=== PATIENT | female | born 1965 | race Hispanic/Latino ===

== ENCOUNTER → 2024-05-21 | Outpatient (CLI) | payer BC ==
[2024-05-21 16:16] LABS: BASOPHILS # (AUTO) 0.05 K/uL (0.00-0.20); BASOPHILS % (AUTO) 1.1 % (0.0-5.0); EOSINOPHILS # (AUTO) 0.17 K/uL (0.00-0.70); EOSINOPHILS % (AUTO) 3.9 % (0.0-8.0); HEMATOCRIT 40.6 % (36-48); IMMATURE GRANULOCYTE ABSOLUTE 0.01 K/uL (0-1); LYMPHOCYTES # (AUTO) 1.1 K/uL (1.0-4.8); MEAN CORPUSCULAR HEMOGLOBIN 27.7 pg (27.0-33.0); MEAN CORPUSCULAR HGB CONC 31.8 g/dL (32.0-36.0); MEAN CORPUSCULAR VOLUME 87.1 fL (79-99); MONOCYTES # (AUTO) 0.4 K/uL (0.1-1.0); MONOCYTES % (AUTO) 8.7 % (3.0-13.0); NEUTROPHILS # (AUTO) 2.7 K/uL (1.8-7.7); NEUTROPHILS % (AUTO) 61.1 % (40.0-77.0); PLATELET COUNT (AUTO) 247 K/uL (130-400); RED BLOOD CELL COUNT(AUTO) 4.66 MIL/uL (4.00-5.50); RED CELL DISTRIBUTION WIDTH 13.6 % (11.0-15.5); WHITE BLOOD COUNT (AUTO) 4.4 K/uL (4.8-10.8)
[2024-05-21 16:32] LABS: HEMOGLOBIN A1C 5.3 % (4.0-6.0)
[2024-05-21 16:42] LABS: ALBUMIN 3.9 g/dL (3.5-5.0); BILIRUBIN,TOTAL 0.5 mg/dL (0.2-1.0); CREATININE 0.9 mg/dL (0.5-1.0); POTASSIUM 4.1 mmol/L (3.5-5.1); THYROID STIMULATING HORMONE 1.84 uIU/mL (0.36-3.74); TOTAL PROTEIN, SERUM 7.1 g/dL (6.0-8.3)
== END | disposition home or self-care (01) ==
LOC: LAB 11:46
PROVIDERS: ATTEND Student in an Organized Health Care Education/Training Program
DX: E78.1 Pure hyperglyceridemia (principal); R00.2 Palpitations; R07.9 Chest pain, unspecified
CPT/HCPCS: 36415; 80053; 80061; 83036; 83735; 84443; 85025

== ENCOUNTER → 2024-05-21 | Outpatient (CLI) | payer BC ==
--- NOTE | 2024-05-23 08:50 | HMCSR ---
APPROVED REPORT Laterality: Bilateral Indications H53.129 Doppler Spectral Velocity Analysis PSV / EDVPSV / EDV ECA (R) 110 / cm/sECA (L) 74 / cm/s dICA (R) 91 / 41 cm/sdICA (L) 100 / 45 cm/s Michael (R) 126 / 50 cm/smICA (L) 106 / 50 cm/s pICA (R) 108 / 34 cm/spICA (L) 113 / 44 cm/s dCCA (R) 82 / 30 cm/sdCCA (L) 115 / 51 cm/s mCCA (R) 102 / 31 cm/smCCA (L) 109 / 34 cm/s pCCA (R) 97 / 33 cm/spCCA (L) 131 / 39 cm/s Vert (R) 80 / cm/sVert (L) 68 / cm/s Subl. (R) 127 / cm/sSubl. (L) 130 / cm/s ICA/CCA 1.24ICA/CCA 0.86 Technologist Impression Minimal plaque noted in the bilateral carotids, without hemodynamic significance. DASHAWN and LICA appear patent without stenosis. (Tortuous) Bilateral vertebral arteries appear antegrade. Conclusion Minimal plaque noted in the bilateral carotids, without hemodynamic significance. DASHAWN and LICA appear patent without stenosis. (Tortuous) Bilateral vertebral arteries appear antegrade. Conclusion Minimal plaque noted in the bilateral carotids, without hemodynamic significance. DASHAWN and LICA appear patent without stenosis. (Tortuous) Bilateral vertebral arteries appear antegrade.
== END | disposition home or self-care (01) ==
LOC: SHCH 13:28
PROVIDERS: ATTEND Student in an Organized Health Care Education/Training Program
DX: H53.129 Transient visual loss, unspecified eye (principal); R09.89 Other specified symptoms and signs involving the circulatory and respiratory systems
CPT/HCPCS: 93880